=== PATIENT | male | born 1995 | race Caucasian/White ===

== ENCOUNTER 2024-05-25 19:15 | Emergency (ER) | payer OTHER ==
[2024-05-25] MEDS ORDERED: HYDROcodone/Acetaminophen 10/325 mg Tablet ONE (20:43)
== END 2024-05-25 21:00 ==
LOC: ERS 19:15 → EEVIPCON 19:15 → ERS 21:00
DX: S62.616A Displaced fracture of proximal phalanx of right little finger, initial encounter for closed fracture (principal); X58.XXXA Exposure to other specified factors, initial encounter; Y93.67 Activity, basketball
CPT/HCPCS: 99283